=== PATIENT | female | born 1970 | race Hispanic/Latino ===

== ENCOUNTER 2022-01-17 20:52 | Emergency (ER) | payer OTHER ==
[~2022-01-17] VITALS: Ht 152.4 cm; Wt 66.7 kg
[2022-01-17] MEDS ORDERED: SOLU-MEDROL 125MG VIAL IVP ONE (21:00)
[2022-01-17] MEDS ORDERED: DiphenhydrAMINE HCL 50 MG/ML VIAL IV ONE (21:00)
[2022-01-17] MEDS ORDERED: FAMOTIDINE 20MG VIAL IV ONE (21:00)
[2022-01-17] MEDS ORDERED: FAMO-136 PO (21:09)
[2022-01-17] MEDS ORDERED: CETI1SOL17 PO (21:09)
[2022-01-17] MEDS ORDERED: PRED20TA3 PO (21:09)
[2022-01-17 21:53] VITALS: BP 139/78
== END 2022-01-17 22:03 | disposition home or self-care (01) ==
LOC: EDH 20:52
DX: L50.9 Urticaria, unspecified (principal); F41.9 Anxiety disorder, unspecified; F32.A Depression, unspecified; Z79.52 Long term (current) use of systemic steroids
CPT/HCPCS: 99284; 96374; 96375; J1200; J3490; J2930

== ENCOUNTER → 2023-03-02 | Outpatient (CLI) | payer OTHER ==
[~2023-03-02] MED LIST: CETI1SOL17 PO; FAMO-136 PO; PRED20TA3 PO
== END | disposition home or self-care (01) ==
LOC: RAH 10:32
PROVIDERS: ATTEND Family Medicine
DX: Z12.31 Encounter for screening mammogram for malignant neoplasm of breast (principal)
CPT/HCPCS: 77067

== ENCOUNTER → 2023-07-23 | Outpatient (CLI) | payer OTHER | END | disposition home or self-care (01) | LOC: OIH 11:00 | PROVIDERS: ATTEND Family Medicine | DX: Z13.6 Encounter for screening for cardiovascular disorders (principal) | CPT/HCPCS: 75571 ==

== ENCOUNTER 2024-10-20 14:46 | Emergency (ER) | payer OTHER ==
[~2024-10-20] VITALS: Ht 152.4 cm; Wt 65.8 kg
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
[2024-10-20] MEDS ORDERED: NAPR-1196 PO (16:10)
[2024-10-20] MEDS ORDERED: METH-662 PO (16:10)
[2024-10-20] MEDS: ORPHENADRINE 60MG/2ML IM ONE (16:16)
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
[2024-10-20 16:38] VITALS: BP 139/73; PULSE 70; RESP 6; TEMP 98.9; O2SAT 98
== END 2024-10-20 16:40 | disposition home or self-care (01) ==
LOC: EDH 14:46
DX: S16.1XXA Strain of muscle, fascia and tendon at neck level, initial encounter (principal); E78.00 Pure hypercholesterolemia, unspecified; F32.A Depression, unspecified; Z79.52 Long term (current) use of systemic steroids; Z90.89 Acquired absence of other organs; Z98.51 Tubal ligation status; V89.2XXA Person injured in unspecified motor-vehicle accident, traffic, initial encounter; Y93.89 Activity, other specified; Y92.89 Other specified places as the place of occurrence of the external cause; Y99.8 Other external cause status
CPT/HCPCS: 99284; 72040; 72100; 96372 ×2; J1885; J2360